=== PATIENT | male | born 1995 | race Caucasian/White ===

== ENCOUNTER 2018-02-01 17:25 | Emergency (ER) | payer BC ==
[~2018-02-01] VITALS: Ht 185.4 cm; Wt 83.0 kg
[2018-02-01 18:30] LABS: BILIRUBIN NEGATIVE (NEGATIVE); BLOOD NEGATIVE (NEGATIVE); CLARITY CLEAR (CLEAR); COLOR YELLOW (YELLOW); GLUCOSE NEGATIVE (NEGATIVE); KETONE NEGATIVE (NEGATIVE); LEUKO ESTERASE NEGATIVE (NEGATIVE); NITRITE NEGATIVE (NEGATIVE); SPECIFIC GRAVITY 1.025 (1.005-1.030); UROBILINOGEN 0.2 E.U./dl (0.2-1.0)
[2018-02-01 18:45] LABS: MUCOUS TRACE; WBC 0-2 wbc/hpf (0-5)
[2018-02-01] MEDS ORDERED: ZOFRAN4 MG PO (18:58)
[2018-02-01] MEDS ORDERED: NAPROSYN500 MG PO (18:58)
[2018-02-03 07:03] LABS: GONOCOCCUS BY NAA Negative (Negative)
== END 2018-02-01 18:59 | disposition home or self-care (01) ==
LOC: ED 17:25
PROVIDERS: Nurse Practitioner Family
DX: N50.82 Scrotal pain (principal); R03.0 Elevated blood-pressure reading, without diagnosis of hypertension